=== PATIENT | male | born 1945 | race Caucasian/White ===

== ENCOUNTER → 2019-01-09 | Outpatient (CLI) | payer MEDICARE, BC ==
[~2019-01-09] MED LIST: BENADRYL25 MG PO; CENTRUM SILVER1 EAC2; CENTRUM SILVER1 EAC4 PO; CRUTCH2 USE; DOCU100 PO; ENOX30I SC; HYDACE5 PO; METANX CAPSULE1 EACH; METO25ER PO; MINO100 PO; OXYC1TAB11 PO; POLY500; PRED20 PO; PROTEXIN; SPIR25 PO; Super B Comple150 MG; [UNRECOGNIZED DRUG - OTHER]
== END | disposition home or self-care (01) ==
LOC: LAB SHORT 08:01 → PLD 08:01
DX: D04.4 Carcinoma in situ of skin of scalp and neck (principal)
CPT/HCPCS: 88305

== ENCOUNTER → 2019-05-22 | Outpatient (CLI) | payer MEDICARE, BC | END | disposition home or self-care (01) | LOC: LAB SHORT 15:21 → PLD 15:21 | DX: D48.5 Neoplasm of uncertain behavior of skin (principal) | CPT/HCPCS: 88305 ==

== ENCOUNTER 2019-08-31 02:54 | Inpatient (IN) | payer MEDICARE, BC ==
[~2019-08-31] VITALS: Ht 182.9 cm; Wt 90.7 kg
[2019-08-31 03:20] LABS: BASOPHILS ABSOLUTE AUTO 0.08 K/mm3 (0.00-0.23); BASOPHILS PERCENT AUTO 1 % (0-2); EOSINOPHILS ABSOLUTE AUTO 0.03 K/mm3 (0.00-0.68); EOSINOPHILS PERCENT AUTO 0 % (0-6); Hematocrit 44.6 % (37.0-53.0); Hemoglobin 15.2 g/dL (13.5-17.5); IMMATURE GRAN ABSOLUTE AUTO 0.02 K/mm3 (0.00-0.10); IMMATURE GRAN PERCENT AUTO 0 % (0-1); LYMPHOCYTES ABSOLUTE AUTO 2.12 K/mm3 (0.84-5.20); LYMPHOCYTES PERCENT AUTO 24 % (21-46); MONOCYTES ABSOLUTE AUTO 0.85 K/mm3 (0.16-1.47); MONOCYTES PERCENT AUTO 10 % (4-13); Mean Corpuscular HGB 34.2 pg (26.0-34.0); Mean Corpuscular HGB Conc 34.1 g/dL (31.5-36.5); Mean Corpuscular Volume 101 fL (80-100); Mean Platelet Volume 9.9 fL (9.1-12.4); NEUTROPHILS ABSOLUTE AUTO 5.66 K/mm3 (1.96-9.15); NEUTROPHILS PERCENT AUTO 65 % (41-73); Platelet Count 156 K/mm3 (150-400); RDW Standard Deviation 48.4 fL (35.1-46.3); Red Blood Cell Count 4.44 M/mm3 (4.30-5.90); White Blood Cell Count 8.76 K/mm3 (4.00-11.30)
[2019-08-31 03:37] LABS: International Normalized Ratio 1.06; Prothrombin Time Results 11.3 Sec (9.7-11.5)
[2019-08-31 03:38] LABS: Alanine Aminotransfer (ALT/SGP 57 U/L (12-78); Albumin, Blood 3.6 g/dL (3.4-5.0); Albumin/Globulin Ratio 0.8 (0.8-1.8); Alk Phos 102 U/L (50-136); Anion Gap 11 mmol/L (6-16); Aspartate Aminotrans (AST/SGOT 82 U/L (12-37); Bilirubin, Total 0.5 mg/dL (0.1-1.0); Blood Urea Nitrogen 5 mg/dL (8-24); Bun/Creatinine Ratio 8.3 (12.0-20.0); CO2, Blood 25 mmol/L (21-32); Calcium, Blood 8.7 mg/dL (8.5-10.1); Chloride, Blood 97 mmol/L (98-108); Ethanol (Alcohol), Blood, Med 266 mg/dL; Globulin, Blood 4.5 g/dL (2.2-4.0); Glomerular Filtration Rate >60 (60-); Glucose, Blood 135 mg/dL (70-99); Potassium, Blood 4.7 mmol/L (3.5-5.5); Sodium, Blood 133 mmol/L (136-145); Total Protein, Blood 8.1 g/dL (6.4-8.2)
--- NOTE | 2019-08-31 14:54 | NUR ---
AT APROX 1420 RT NOTIFIED THIS RN THAT PT WAS DIFFICULT TO ARROUSE WITH O2 SAT DROPPING BELOW 80% ON 4L O2 VIA NC. PT HAD BEEN GIVEN DILAUDID 2MG IVP AT APROX [address] CESAR FOR PLACEMENT OF BUCKS TRACTION. 0.4MG NARCAN ADMINISTERED BY THIS RN AT 1429-PT BECAME ALERT/RESPONSIVE WITH O2 SAT 94%. PT BEGAN TO VOMIT AT THIS TIME, GIVEN 4MG ZOFRAN. PT ALSO BEGINING TO HAVE SEVERE TREMORS AND AGGITATION-CIWA SCORE 19, 0.5MG ATIVAN ADMINISTERED PER EMAR FOR ALCOHOL WITHRAWL. PRIMARY RN NOTIFIED OF ALL EVENTS.
--- NOTE | 2019-08-31 19:23 | NUR ---
SHIFT SUMMARY PT A&OX4, L FEMUR FX IN BUCKS TRACTION, SCD TO R LLE, ETOH CIWA 7 AFTER RECEIVING 1 MG ATIVAN FOR ANXIETY & AGITATION. BIOX ON; 4LNC AND HOB 30 DEGREES; PT REF CPAP. PLAN IS FOR NPO AT MIDNIGHT, SURGERY AT 1000 TOMORROW. REPORT GIVEN TO DIXIE REGALADO.
[2019-09-01 02:49] LABS: Source, Urine Catheter
[2019-09-01 02:52] LABS: Appearance, Urine Clear (Clear); Bilirubin, Urine 1+ (Neg); Blood, Urine 3+ (Neg); Color, Urine Orange (P-Yellow); Glucose Qualitative, Urine Neg (Neg); Ketones, Urine 2+ (Neg); Leukocyte Esterase, Urine 3+ (Neg); Nitrite, Urine Pos (Neg); Protein, Urine 2+ (Neg); Specific Gravity, Urine 1.025 (1.003-1.022); Urobilinogen, Urine 2+ (Normal)
[2019-09-01 02:58] LABS: Bacteria Many /hpf; Mucus Mod (0-Heavy); Squamous Epithelial Cells Few /hpf (Few); White Blood Cells, Urine 25-50 /hpf (0-5)
[2019-09-01 03:35] LABS: Hematocrit 37.3 % (37.0-53.0); Hemoglobin 12.3 g/dL (13.5-17.5); Mean Corpuscular HGB 33.3 pg (26.0-34.0); Mean Corpuscular Volume 101 fL (80-100); Mean Platelet Volume 10.2 fL (9.1-12.4); Platelet Count 120 K/mm3 (150-400); RDW Coefficient Variation 13.1 % (11.7-14.2); RDW Standard Deviation 48.3 fL (35.1-46.3); Red Blood Cell Count 3.69 M/mm3 (4.30-5.90); White Blood Cell Count 6.59 K/mm3 (4.00-11.30)
--- NOTE | 2019-09-01 03:55 | NUR ---
SHIFT SUMMARY PT IS A/O BUT SEEMS SLIGHTY CONFUSED AT TIMES. HE HAS BEEN BEDREST WITH TRACTION. PT HAS SHOWED SOME SIGNS OF ETOH WITHDRAWAL AND MED WITH ATIVAN PER ORDERS. PT C/O PAIN ONCE BUT BECAUSE OF THE EVENTS DURING DAY SHIFT 08/31 HE WANTED TO AVOID NARCOTICS IF NECESSARY. CIWA WAS 8-9; PT GIVEN 1 MG ATIVAN. PT REPORTED THIS ADEQUATELY MANAGED HIS PAIN AND HE REPORTS HE HAS BEEN COMFORTABLE SINCE THEN. PT HAS BEEN NPO SINCE MIDNIGHT. CARL IN PLACE, OFF FLOOR, DRAINING. CONT BIOX IN PLACE. ASSISTED WITH ADL'S PRN.
[2019-09-01 03:57] LABS: Alanine Aminotransfer (ALT/SGP 37 U/L (12-78); Albumin, Blood 2.9 g/dL (3.4-5.0); Albumin/Globulin Ratio 0.8 (0.8-1.8); Alk Phos 76 U/L (50-136); Anion Gap 6 mmol/L (6-16); Aspartate Aminotrans (AST/SGOT 50 U/L (12-37); Bilirubin, Total 1.4 mg/dL (0.1-1.0); Blood Urea Nitrogen 9 mg/dL (8-24); Bun/Creatinine Ratio 13.9 (12.0-20.0); CO2, Blood 28 mmol/L (21-32); Calcium, Blood 8.3 mg/dL (8.5-10.1); Chloride, Blood 98 mmol/L (98-108); Creatinine, Blood 0.65 mg/dL (0.60-1.20); Globulin, Blood 3.6 g/dL (2.2-4.0); Glomerular Filtration Rate >60 (60-); Glucose, Blood 117 mg/dL (70-99); Potassium, Blood 4.5 mmol/L (3.5-5.5); Sodium, Blood 132 mmol/L (136-145); Total Protein, Blood 6.5 g/dL (6.4-8.2)
--- NOTE | 2019-09-01 10:59 | NUR ---
09/01/19 1059 Fawn Jean 1057 ANCEF 2GM GIVEN IN OR IVPB BY DR. HAMILTON PER DR. CESAR ORDERS
[2019-09-01 15:51] LABS: Hemoglobin 10.4 g/dL (13.5-17.5)
--- NOTE | 2019-09-01 16:45 | NUR ---
SHIFT SUMMARY PT A&OX4, VSS, 4LNC >92%, BIOX AT BEDSIDE. S/P L HIP GAMMA NAIL, SURGICAL DRESSING CDI. DENIES PAIN AT THIS TIME. DENIES N&V. CARL PATENT & DRAINING DK ORANGE URINE, STAT LOCK ON, OFF FLOOR. SCDS BLE. CIWA STABLE. WILL REPORT TO ONCOMING NOC RN.
--- NOTE | 2019-09-02 04:22 | NUR ---
SHIFT SUMMARY PT IS A/O X4. HE IS S/P ORIF OF L FEMUR. DRESSING CDI. PT IS UNCOMFORTABLE WITH MOVEMENT BUT REPORTS HIS PAIN IS MUCH BETTER THAN YESTERDAY. PAIN MANAGED WITH PO PAIN MEDS PER ORDERS. PT TOLERATING PO INTAKE. CARL IN PLACE, OFF FLOOR, DRAINING DARK URINE. FLUIDS HAVE BEEN RUNNING IV PER ORDERS. ASSISTED WITH ADL'S PRN.
[2019-09-02 04:40] LABS: BASOPHILS ABSOLUTE AUTO 0.01 K/mm3 (0.00-0.23); BASOPHILS PERCENT AUTO 0 % (0-2); EOSINOPHILS PERCENT AUTO 0 % (0-6); Hematocrit 27.1 % (37.0-53.0); IMMATURE GRAN ABSOLUTE AUTO 0.05 K/mm3 (0.00-0.10); IMMATURE GRAN PERCENT AUTO 1 % (0-1); LYMPHOCYTES ABSOLUTE AUTO 1.92 K/mm3 (0.84-5.20); LYMPHOCYTES PERCENT AUTO 19 % (21-46); MONOCYTES ABSOLUTE AUTO 1.57 K/mm3 (0.16-1.47); MONOCYTES PERCENT AUTO 16 % (4-13); Mean Corpuscular HGB 34.6 pg (26.0-34.0); Mean Corpuscular HGB Conc 33.2 g/dL (31.5-36.5); Mean Corpuscular Volume 104 fL (80-100); Mean Platelet Volume 10.9 fL (9.1-12.4); NEUTROPHILS ABSOLUTE AUTO 6.46 K/mm3 (1.96-9.15); NEUTROPHILS PERCENT AUTO 65 % (41-73); NRBC ABSOLUTE 0.02 K/mm3 (0.00-0.02); NRBC Auto 0.2 /100 WBC (0.0-0.2); Platelet Count 125 K/mm3 (150-400); RDW Coefficient Variation 12.8 % (11.7-14.2); White Blood Cell Count 10.01 K/mm3 (4.00-11.30)
[2019-09-02 04:55] LABS: Anion Gap 8 mmol/L (6-16); Blood Urea Nitrogen 13 mg/dL (8-24); CO2, Blood 25 mmol/L (21-32); Chloride, Blood 98 mmol/L (98-108); Creatinine, Blood 0.87 mg/dL (0.60-1.20); Glomerular Filtration Rate >60 (60-); Glucose, Blood 145 mg/dL (70-99); Potassium, Blood 4.9 mmol/L (3.5-5.5); Sodium, Blood 131 mmol/L (136-145)
--- NOTE | 2019-09-02 19:29 | NUR ---
SHIFT SUMMARY PAIN HAS BEEN MANAGED WITH PO PAIN MEDICATION. PT WORKED WITH THERAPY BUT REQUIRES MAX ASSIST TO STAND. VSS. WILL REPORT TO ONCOMING RN.
[2019-09-03 04:37] LABS: BASOPHILS ABSOLUTE AUTO 0.02 K/mm3 (0.00-0.23); BASOPHILS PERCENT AUTO 0 % (0-2); EOSINOPHILS ABSOLUTE AUTO 0.04 K/mm3 (0.00-0.68); EOSINOPHILS PERCENT AUTO 1 % (0-6); Hematocrit 22.2 % (37.0-53.0); Hemoglobin 7.3 g/dL (13.5-17.5); IMMATURE GRAN ABSOLUTE AUTO 0.06 K/mm3 (0.00-0.10); IMMATURE GRAN PERCENT AUTO 1 % (0-1); LYMPHOCYTES ABSOLUTE AUTO 2.45 K/mm3 (0.84-5.20); LYMPHOCYTES PERCENT AUTO 31 % (21-46); MONOCYTES ABSOLUTE AUTO 1.33 K/mm3 (0.16-1.47); MONOCYTES PERCENT AUTO 17 % (4-13); Mean Corpuscular HGB 34.3 pg (26.0-34.0); Mean Corpuscular HGB Conc 32.9 g/dL (31.5-36.5); Mean Corpuscular Volume 104 fL (80-100); Mean Platelet Volume 10.4 fL (9.1-12.4); NEUTROPHILS ABSOLUTE AUTO 4.05 K/mm3 (1.96-9.15); NEUTROPHILS PERCENT AUTO 51 % (41-73); NRBC ABSOLUTE 0.04 K/mm3 (0.00-0.02); NRBC Auto 0.5 /100 WBC (0.0-0.2); Platelet Count 140 K/mm3 (150-400); RDW Coefficient Variation 13.2 % (11.7-14.2); RDW Standard Deviation 49.6 fL (35.1-46.3); Red Blood Cell Count 2.13 M/mm3 (4.30-5.90); White Blood Cell Count 7.95 K/mm3 (4.00-11.30)
[2019-09-03 04:57] LABS: Anion Gap 5 mmol/L (6-16); Blood Urea Nitrogen 12 mg/dL (8-24); Bun/Creatinine Ratio 16.6 (12.0-20.0); CO2, Blood 29 mmol/L (21-32); Calcium, Blood 7.9 mg/dL (8.5-10.1); Chloride, Blood 99 mmol/L (98-108); Creatinine, Blood 0.72 mg/dL (0.60-1.20); Glomerular Filtration Rate >60 (60-); Glucose, Blood 95 mg/dL (70-99); Potassium, Blood 3.8 mmol/L (3.5-5.5); Sodium, Blood 133 mmol/L (136-145)
--- NOTE | 2019-09-03 06:31 | NUR ---
SHIFT SUMMARY HAS RESTED WELL THIS SHIFT. WAS A BIT CONFUSED AT HS MED TIME THINKING THAT IT WAS MORNING, EASILY REORIENTED. DENIES PAINM DISCOMFORT, OR FURTHER NEEDS AT THIS TIME. CARL CATH TO BE D/C'D THIS AM. SAFETY MEASURES IN PLACE. WILL GIVE HAND OFF TO ONCOMING SHIFT USING SBAR DURING BEDSIDE REPORT.
[2019-09-03 16:34] LABS: Hemoglobin 8.4 g/dL (13.5-17.5); Mean Corpuscular HGB Conc 33.6 g/dL (31.5-36.5); Mean Platelet Volume 10.4 fL (9.1-12.4); NRBC ABSOLUTE 0.07 K/mm3 (0.00-0.02); Platelet Count 151 K/mm3 (150-400); RDW Standard Deviation 50.5 fL (35.1-46.3); Red Blood Cell Count 2.47 M/mm3 (4.30-5.90); White Blood Cell Count 7.29 K/mm3 (4.00-11.30)
[2019-09-03 16:37] LABS: Mean Corpuscular Volume 101 fL (80-100)
--- NOTE | 2019-09-03 18:07 | NUR ---
SHIFT SUMMARY: PATIENT HAS BEEN ALERT AND ORIENTATED X4. HE CALLS WHEN APPROPRIATE AND HAS BEEN EATING ADEQUATELY. IN THE PAST HOUR THE PATIENT HAS BECOME A LITTLE NAUSOUS, BUT [facility] WAS ADMINITERED AND HAS SINCE BEEN DOING BETTER. PHYSICAL THERAPY CAME IN TO HELP AMBULATE HIM, BUT HE WASN'T ABLE TO GET UP WITHOUT THE HELP OF TWO PEOPLE. PATIENT HAD HIS CARL TAKEN OUT, AND HAS VOIDED SINCE HAVING IT OUT. PAIN HAS BEEN MANAGED AND PAIN HAS STAYED AROUND A 3-4 WHEN LAYING IN BED. HOWEVER, HIS PAIN BECOMES A 8-9 WHEN MOVING OR TRYING TO GET OUT OF BED. PATIENT HAS SO FAR RECIEVED ONE UNIT OF BLOOD AND HAS TOLERATED IT WELL WITHOUT ISSUES. WAITING TO RECIEVE THE SECOND UNIT OF BLOOD FROM LAB AT THIS TIME.
--- NOTE | 2019-09-03 23:29 | NUR ---
TRANSFUSION DONE INFUSING PT REPORTS FEELING MUCH BETTER, DENIES ITCHING, DENIES SOB. PT SITTING UP IN BED. WILL CALL FOR REPEAT H&H PER PROTOCOL
[2019-09-04 00:54] LABS: Hematocrit 28.6 % (37.0-53.0); Hemoglobin 9.6 g/dL (13.5-17.5)
--- NOTE | 2019-09-04 04:11 | NUR ---
SHIFT SUMMARY POD 2 LEFT FEMUR GAMMA NAILING AA0X4, VSS. DRESSING INTACT ON LEFT LEG. MOD AMOUNT OF DRAINAGE OUT DURING SHIFT. PT FINISHED SECOND UNIT OF BLOOD, TOLERATED WELL, STATES FEELING BETTER. LARGE BRUISE LEFT UPPER HIP ABOVE SURGICAL SITE. RESTING IN BED T/O SHIFT. HGB LEVELS UP ABOVE 9.0 AFTER RECEIVING BLOOD. PLAN IS TO DISCHARGE HOME TO SNF AT 1030 THIS AM. PT DENIES PAIN DURING SHIFT.
--- NOTE | 2019-09-04 07:10 | NUR ---
RECVD REPORT FROM PREVIOUS SHIFT RN SHANEL, PT SLEEPING IN BED, BED IN LOWESET POSITION, BED RAILS UP X 2, CALL LIGHT WITHIN REACH
--- NOTE | 2019-09-04 10:28 | NUR ---
dressing change per MD, calling report to [facility] in anticipation of facility discharge
--- NOTE | 2019-09-04 10:37 | NUR ---
wheelchair transport here to transfer pt to SNF
--- NOTE | 2019-09-04 10:55 | NUR ---
lissy transport to [facility] at 1200, peripheral IVs removd WNL
--- NOTE | 2019-09-04 12:09 | NUR ---
[facility]SP[facility] TO TRANSFER PT
== END 2019-09-04 12:11 | DRG 481 ==
LOC: ER 02:54 → SURS 06:10
PROVIDERS: Anesthesiology; Emergency Medicine; Family Medicine; Orthopaedic Surgery; ADMIT Internal Medicine
PROC: 0QS704Z Reposition Left Upper Femur with Internal Fixation Device, Open Approach (ICD-10-PCS; principal; 2019-09-01 10:00)
DX: S72.142A Displaced intertrochanteric fracture of left femur, initial encounter for closed fracture (principal); N39.0 Urinary tract infection, site not specified; D62 Acute posthemorrhagic anemia; I10 Essential (primary) hypertension; G62.1 Alcoholic polyneuropathy; W19.XXXA Unspecified fall, initial encounter; F10.229 Alcohol dependence with intoxication, unspecified; Y90.8 Blood alcohol level of 240 mg/100 ml or more
CPT/HCPCS: 36415; 36430; 70450; 71045; 73552; 73700; 76377; 80048; 80053; 81001; 83735; 85014; 85018; 85025; 85027; 85610; 86850; 86900; 86901; 86923; 87086; 93005; 93010; 94762; 96365; 96375; 96376; 97163; 97530; 99285-25; A9270-GY; C1713; C1769; G0480; J0690; J0696; J1100; J1170; J1650; J1940; J2060; J2250; J2310; J2370; J2405; J2550; J2704; J2710; J2765; J3010; J3411; J3475; J7030; J7042; J7120; P9016

== ENCOUNTER 2019-11-24 17:21 | Inpatient (IN) | payer MEDICARE, BC ==
[~2019-11-24] VITALS: Ht 182.9 cm; Wt 88.6 kg
[~2019-11-24 17:21] MED LIST changes: -CENTRUM SILVER1 EAC4 PO; +Daily Multiple1 EACH PO
[2019-11-24 20:11] LABS: BASOPHILS ABSOLUTE AUTO 0.04 K/mm3 (0.00-0.23); BASOPHILS PERCENT AUTO 0 % (0-2); EOSINOPHILS ABSOLUTE AUTO 0.12 K/mm3 (0.00-0.68); EOSINOPHILS PERCENT AUTO 1 % (0-6); Hematocrit 40.3 % (37.0-53.0); Hemoglobin 13.5 g/dL (13.5-17.5); IMMATURE GRAN ABSOLUTE AUTO 0.02 K/mm3 (0.00-0.10); IMMATURE GRAN PERCENT AUTO 0 % (0-1); LYMPHOCYTES ABSOLUTE AUTO 3.17 K/mm3 (0.84-5.20); LYMPHOCYTES PERCENT AUTO 35 % (21-46); MONOCYTES ABSOLUTE AUTO 0.72 K/mm3 (0.16-1.47); MONOCYTES PERCENT AUTO 8 % (4-13); Mean Corpuscular HGB 31.5 pg (26.0-34.0); Mean Corpuscular HGB Conc 33.5 g/dL (31.5-36.5); Mean Corpuscular Volume 94 fL (80-100); Mean Platelet Volume 9.7 fL (9.1-12.4); NEUTROPHILS ABSOLUTE AUTO 4.98 K/mm3 (1.96-9.15); NEUTROPHILS PERCENT AUTO 55 % (41-73); Platelet Count 269 K/mm3 (150-400); RDW Coefficient Variation 13.8 % (11.7-14.2); RDW Standard Deviation 47.5 fL (35.1-46.3); Red Blood Cell Count 4.29 M/mm3 (4.30-5.90); White Blood Cell Count 9.05 K/mm3 (4.00-11.30)
[2019-11-24 20:26] LABS: Anion Gap 9 mmol/L (6-16); Blood Urea Nitrogen 5 mg/dL (8-24); CO2, Blood 24 mmol/L (21-32); Calcium, Blood 8.8 mg/dL (8.5-10.1); Chloride, Blood 108 mmol/L (98-108); Creatinine, Blood 0.63 mg/dL (0.60-1.20); Glomerular Filtration Rate >60 (60-); Glucose, Blood 82 mg/dL (70-99); Potassium, Blood 3.8 mmol/L (3.5-5.5); Sodium, Blood 141 mmol/L (136-145)
[2019-11-24 21:35] LABS: Source, Urine Catheter
[2019-11-24 21:42] LABS: Bilirubin, Urine Neg (Neg); Blood, Urine Neg (Neg); Glucose Qualitative, Urine Neg (Neg); Ketones, Urine 2+ (Neg); Leukocyte Esterase, Urine Neg (Neg); Nitrite, Urine Neg (Neg); Protein, Urine Neg (Neg); Urobilinogen, Urine NORM (Normal)
[2019-11-24 21:44] LABS: Appearance, Urine Clear (Clear); Color, Urine Yellow (P-Yellow)
[2019-11-25 04:28] LABS: BASOPHILS ABSOLUTE AUTO 0.05 K/mm3 (0.00-0.23); BASOPHILS PERCENT AUTO 1 % (0-2); EOSINOPHILS PERCENT AUTO 1 % (0-6); Hematocrit 38.7 % (37.0-53.0); Hemoglobin 12.8 g/dL (13.5-17.5); IMMATURE GRAN ABSOLUTE AUTO 0.02 K/mm3 (0.00-0.10); IMMATURE GRAN PERCENT AUTO 0 % (0-1); LYMPHOCYTES ABSOLUTE AUTO 2.49 K/mm3 (0.84-5.20); LYMPHOCYTES PERCENT AUTO 33 % (21-46); MONOCYTES ABSOLUTE AUTO 0.97 K/mm3 (0.16-1.47); MONOCYTES PERCENT AUTO 13 % (4-13); Mean Corpuscular HGB 31.1 pg (26.0-34.0); Mean Corpuscular HGB Conc 33.1 g/dL (31.5-36.5); Mean Corpuscular Volume 94 fL (80-100); Mean Platelet Volume 9.8 fL (9.1-12.4); NEUTROPHILS ABSOLUTE AUTO 3.99 K/mm3 (1.96-9.15); NEUTROPHILS PERCENT AUTO 52 % (41-73); Platelet Count 236 K/mm3 (150-400); RDW Coefficient Variation 13.8 % (11.7-14.2); RDW Standard Deviation 47.6 fL (35.1-46.3); Red Blood Cell Count 4.11 M/mm3 (4.30-5.90); White Blood Cell Count 7.62 K/mm3 (4.00-11.30)
[2019-11-25 04:41] LABS: International Normalized Ratio 1.05; Prothrombin Time Results 11.2 Sec (9.7-11.5)
[2019-11-25 04:45] LABS: Anion Gap 9 mmol/L (6-16); Blood Urea Nitrogen 7 mg/dL (8-24); Bun/Creatinine Ratio 13.5 (12.0-20.0); CO2, Blood 22 mmol/L (21-32); Calcium, Blood 8.2 mg/dL (8.5-10.1); Chloride, Blood 109 mmol/L (98-108); Creatinine, Blood 0.52 mg/dL (0.60-1.20); Glomerular Filtration Rate >60 (60-); Glucose, Blood 93 mg/dL (70-99); Sodium, Blood 140 mmol/L (136-145)
--- NOTE | 2019-11-25 05:32 | NUR ---
SHIFT SUMMARY: MATEHW WAS ADMITTED TO THE FLOOR LAST NIGHT AFTER EXPERIENCING A GLF RESULTING IN A LEFT FEMUR FX. HE IS A&OX4. HIS PAIN LEVEL HAS BEEN HIGH, 8-10/10. DOSE OF DILAUDID INCREASED TO 2 MG Q 4 HOURS PRN. HE REPORTS THAT THE INCREASED DOSE DID PROVIDE IMPROVED PAIN CONTROL, BUT THAT IT CAUSED SOME "SWIMMY HEAD". HIS OXYGEN SATURATIONS ARE MAINTAINING ABOVE 93% ON 2L VIA NC. HE DID DESATURATE TO THE 80's WITHOUT O2 SUPPLEMENTATION AFTER NARCOTIC ADMINISTRATION. HE IS TOLERATING SIPS OF WATER WELL, NPO NOW IN ANTICIPATION FOR SURGERY TODAY. DR. CESAR TO CONSULT. HE IS ABLE TO MAKE HIS NEEDS KNOWN. HE IS LYING IN BED WITH HIS CALL LIGHT IN REACH. WILL REPORT TO DAY SHIFT RN.
--- NOTE | 2019-11-25 10:13 | NUR ---
ASSUMED CARE OF PT, DENIES ANY NEED FOR PAIN MEDS AT THIS TIME, ICE PACK TO L HIP, CONT. TO MONITOR FOR ANY CHANGES.
--- NOTE | 2019-11-25 12:55 | NUR ---
Surgical site prepped with 2% Chlorhexidine cloth wipe. History, Chart, Medications and Allergies reviewed before start of procedure. Lungs clear T/O to Auscultation. Pre-Op teaching done. Pt verbalizes understanding. Patient confirms NPO status and agrees with scheduled surgery.
[2019-11-26 04:28] LABS: BASOPHILS ABSOLUTE AUTO 0.01 K/mm3 (0.00-0.23); BASOPHILS PERCENT AUTO 0 % (0-2); EOSINOPHILS PERCENT AUTO 0 % (0-6); Hematocrit 31.3 % (37.0-53.0); Hemoglobin 10.7 g/dL (13.5-17.5); IMMATURE GRAN ABSOLUTE AUTO 0.02 K/mm3 (0.00-0.10); IMMATURE GRAN PERCENT AUTO 0 % (0-1); LYMPHOCYTES ABSOLUTE AUTO 0.76 K/mm3 (0.84-5.20); LYMPHOCYTES PERCENT AUTO 9 % (21-46); MONOCYTES ABSOLUTE AUTO 0.57 K/mm3 (0.16-1.47); MONOCYTES PERCENT AUTO 7 % (4-13); Mean Corpuscular HGB 32.1 pg (26.0-34.0); Mean Corpuscular HGB Conc 34.2 g/dL (31.5-36.5); Mean Corpuscular Volume 94 fL (80-100); Mean Platelet Volume 10.2 fL (9.1-12.4); NEUTROPHILS ABSOLUTE AUTO 6.74 K/mm3 (1.96-9.15); NEUTROPHILS PERCENT AUTO 83 % (41-73); Platelet Count 195 K/mm3 (150-400); RDW Coefficient Variation 13.4 % (11.7-14.2); RDW Standard Deviation 45.9 fL (35.1-46.3); Red Blood Cell Count 3.33 M/mm3 (4.30-5.90)
[2019-11-26 04:44] LABS: Anion Gap 6 mmol/L (6-16); Blood Urea Nitrogen 7 mg/dL (8-24); Bun/Creatinine Ratio 14.5 (12.0-20.0); CO2, Blood 25 mmol/L (21-32); Calcium, Blood 7.9 mg/dL (8.5-10.1); Chloride, Blood 108 mmol/L (98-108); Creatinine, Blood 0.48 mg/dL (0.60-1.20); Glomerular Filtration Rate >60 (60-); Glucose, Blood 175 mg/dL (70-99); Potassium, Blood 4.1 mmol/L (3.5-5.5); Sodium, Blood 139 mmol/L (136-145)
--- NOTE | 2019-11-26 04:58 | NUR ---
SHIFT SUMMARY POD 1 L FEMUR REPAIR AA0X4, LEFT LEG KNEE IMMOBILIZER IN PLACE DURING SHIFT. PT REPORTS "FEELING A KNIFE STABBING" WHEN REPORTING PAIN. PAIN MANAGED PER EMAR PT STATED RELIEF WITH MEDICATION. CARL PATENT AND DRAINING. TOLERATING PO WELL, ENCOURAGED DEEP BREATHING AND USE OF I.S. TODAY.
--- NOTE | 2019-11-26 10:35 | NUR ---
11/26/19 1035 Ashley [employer] VERIFICATIONS: EDIT CHART.
--- NOTE | 2019-11-26 16:38 | NUR ---
ASSISTED BACK TO BED W/ 2 PERSON MIN ASSIST, TOLERATED WELL, ABLE TO MAINTAIN NWB STATUS ON LLE.
--- NOTE | 2019-11-26 17:47 | NUR ---
SUMMARY REPORTS HAVING ADEQUATE PAIN CONTROL W/ PO NORCO, OOB TO CHAIR, PT MAINTAINING NWB ON LLE STATUS ON TRANSFERS, DSG C/D/I, PLAN FOR HOME W/ HOME HEALTH PER PHYS. TX RECOMMENDATION, NO ACUTE CHANGES THIS SHIFT.
[2019-11-27 03:50] LABS: BASOPHILS ABSOLUTE AUTO 0.01 K/mm3 (0.00-0.23); BASOPHILS PERCENT AUTO 0 % (0-2); EOSINOPHILS PERCENT AUTO 0 % (0-6); Hematocrit 29.3 % (37.0-53.0); Hemoglobin 9.8 g/dL (13.5-17.5); IMMATURE GRAN ABSOLUTE AUTO 0.03 K/mm3 (0.00-0.10); IMMATURE GRAN PERCENT AUTO 0 % (0-1); LYMPHOCYTES ABSOLUTE AUTO 1.31 K/mm3 (0.84-5.20); LYMPHOCYTES PERCENT AUTO 15 % (21-46); MONOCYTES PERCENT AUTO 10 % (4-13); Mean Corpuscular HGB 31.4 pg (26.0-34.0); Mean Corpuscular HGB Conc 33.4 g/dL (31.5-36.5); Mean Corpuscular Volume 94 fL (80-100); Mean Platelet Volume 10.4 fL (9.1-12.4); NEUTROPHILS ABSOLUTE AUTO 6.77 K/mm3 (1.96-9.15); NEUTROPHILS PERCENT AUTO 75 % (41-73); Platelet Count 200 K/mm3 (150-400); RDW Coefficient Variation 13.7 % (11.7-14.2); RDW Standard Deviation 46.9 fL (35.1-46.3); Red Blood Cell Count 3.12 M/mm3 (4.30-5.90); White Blood Cell Count 9.02 K/mm3 (4.00-11.30)
--- NOTE | 2019-11-27 05:28 | NUR ---
SHIFT SUMMARY LYING IN SEMI FOWLERS WITH EYES CLOSED WITH TV ON IN BACKGROUND. AAO X3, GONZALEZ, FOLLOWS ALL COMMANDS. HAS BEEN PLEASANT AND COOPERATIVE WITH CARE THIS SHIFT. CARL CATH DRAINING CLEAR YELLOW URINE TO GRAVITY. REPOSITIONS SELF FOR COMFORT PRN. MEDICATED WITH PRN PAIN MEDS X2 THIS SHIFT. DENIES FURTHER NEEDS OR WANTS AT THIS TIME. SAFETY MEASURES IN PLACE. WILL CONTINUE TO MONITOR AND GIVE HAND OFF TO ONCOMING SHIFT USING SBAR DURING BEDSIDE REPORT.
--- NOTE | 2019-11-27 17:36 | NUR ---
SHIFT SUMMARY PT A&OX4, VSS, POD2 L ORIF, AQUACEL CDI, NWB, IMMOBILIZER. AMBULATES W/FWW & GB LLE NWB, TO BRP, UP TO CHAIR T/O SHIFT. CARL OUT TODAY, VOIDING WELL. AMANDA PO, DENIES N&V. PAIN MANAGED WITH NORCO 5 MG Q4 PRN. PLAN FOR DC HOME WITH HH TOMORROW. WILL REPORT TO ONCOMING KARISSA REGALADO.
--- NOTE | 2019-11-28 04:51 | NUR ---
SHIFT SUMMARY PT IS A/O X4. USES STANDBY/1X ASSIST TO BATHROOM/CHAIR. PT HAS BEEN COMPLIANT WITH NWB TO L LEG AND USES FWW WITH GAIT BELT. PT IS TOLERATING PO INTAKE AND VOIDING. IMMOBILIZER IN PLACE TO L LEG. AQUACEL TO L LEG CDI. NO ACUTE CHANGES OVERNIGHT. ASSISTED WITH ADL'S PRN.
[2019-11-28] MEDS ORDERED: HYDR1TAB94 PO (09:37)
[2019-11-28] MEDS ORDERED: ASPI325 PO (10:22)
--- NOTE | 2019-11-28 13:47 | NUR ---
DISCHARGE SUMMARY PT A&OX4, VSS, LEFT FLOOR VIA WC WITH ALL PERSONAL POSSESSIONS INCLUDING DC PACKET AND 1 NARC SCRIPT, AND 2 AQUACEL DRESSINGS TO GO HOME WITH . DC INSTRUCTIONS PROVIDED. PT REP UNDERSTANDING THOSE INSTRUCTIONS INCLUDING FU WITH SURGEON X 2 WKS, HH WILL BE IN TOUCH TO SCHEDULE, NO DRIVING, OK TO SHOWER, ASA 325 MG QD X 14 DAYS. NWB LLE, WALKER WITH ALL AMBULATION, DRESSING CHANGE NEEDED. NEW AQUACEL APPLIED PRIOR TO DC. 2 IVS DC'D.
== END 2019-11-28 13:17 | disposition home health service (06) | DRG 482 ==
LOC: ER 17:21 → SURS 21:52
PROVIDERS: Emergency Medicine; Orthopaedic Surgery; ADMIT Internal Medicine
PROC: 0QSC04Z Reposition Left Lower Femur with Internal Fixation Device, Open Approach (ICD-10-PCS; principal; 2019-11-25 13:30)
DX: M97.02XA Periprosthetic fracture around internal prosthetic left hip joint, initial encounter (principal); G62.9 Polyneuropathy, unspecified; I10 Essential (primary) hypertension; D64.9 Anemia, unspecified; M19.90 Unspecified osteoarthritis, unspecified site; K21.9 Gastro-esophageal reflux disease without esophagitis; F10.20 Alcohol dependence, uncomplicated; W18.30XA Fall on same level, unspecified, initial encounter; Y93.9 Activity, unspecified; Y92.9 Unspecified place or not applicable
CPT/HCPCS: 36415; 51702; 73552; 73560-LT; 80048; 81003; 85025; 85610; 86850; 86900; 86901; 86923; 94762; 96374-59; 96375-59; 97110; 97116; 97162; 97166; 97530; 97535; 99285-25; A9270-GY; C1713; J0171; J0690; J1100; J1170; J1644; J2270; J2405; J2704; J2710; J3010; J7030; J7120